=== PATIENT | female | born 1990 | race Caucasian/White ===

== ENCOUNTER 2019-08-14 18:35 | Emergency (ER) | payer SELFPAY ==
[2019-08-14] MEDS: LIDOCAINE/MYLANTA 40 ML BTL PO (19:44)
== END 2019-08-14 20:52 | disposition home or self-care (01) ==
LOC: FTE 18:35
DX: R10.13 Epigastric pain (principal); R11.2 Nausea with vomiting, unspecified
CPT/HCPCS: 99283